=== PATIENT | female | born 1945 | race Caucasian/White ===

== ENCOUNTER → 2019-12-12 11:25 | Outpatient (CLI) | payer MEDICARE, SELFPAY ==
--- NOTE | ~2019-12-12 | DEXA_ITS ---
Bone Density Report Name: Jennifer Fajardo Age: 74 Sex: Female Ethnicity: White Date of : 1945 Indication: postmenopausal; screening for osteoporosis; asthma or emphysema; hysterectomy; Referring Provider: LINDSEY CARRION Study: Bone densitometry was performed. Exam Date: December 12, 2019 Accession number: [id number] Bone Density: Region BMD T-score Z-score Classification AP Spine (L1-L4) 0.643 -3.7 -1.4 Osteoporosis Femoral Neck (Left) 0.512 -3.0 -1.1 Osteoporosis Total Hip (Left) 0.628 -2.6 -0.9 Osteoporosis Femoral Neck (Right) 0.518 -3.0 -1.0 Osteoporosis Total Hip (Right) 0.675 -2.2 -0.5 Osteopenia Total Hip Mean 0.652 -2.4 -0.7 Osteopenia World Health Organization criteria for BMD impression classify patients as: Normal (T-score at or above -1.0), Osteopenia (T-score between -1.0 and -2.5), or Osteoporosis (T-score at or below -2.5). 10-year Fracture Risk: FRAX not reported because: Some T-score for Spine Total or Hip Total or Femoral Neck at or below -2.5 Clinical Information Provided by Patient: Has used the following medications: Vitamin D, Calcium Has the following medical conditions: Asthma or Emphysema, Hysterectomy Patient maximum height was 63 Menopause Age: 38 No regular weight bearing exercise Does not regularly consume dairy products Drinks caffeinated beverages Onset of menses at age 15 Number of children 3 Impression: The patient has osteoporosis, based on the Total Spine T-score. Discussion: INCREASED RISK OF FRACTURE. BONE DENSITY IS UNDESIRABLY LOW AT ONE OR MORE SKELETAL SITES, CONSISTENT WITH POSTMENOPAUSAL OSTEOPOROSIS. This patient's lowest T-score meets the World Health Organization's (WHO) criteria for osteoporosis at one or more sites (T-score -2.5 or below). In untreated patients, the risk of osteoporotic fracture increases approximately two-fold for each 1.0 SD decrease in T-score. Low bone density is not the only risk factor for fracture; also consider factors such as patient's age, frailty or poor health, risk of falling, risk of injury, previous osteoporotic fracture, family history of osteoporosis, cigarette smoking, low body weight, etc. Not everyone with low bone mineral density has osteoporosis; osteomalacia and other metabolic bone disorders should also be considered. Patients who have osteoporosis should be evaluated for specific diseases and conditions (secondary causes) that may cause or contribute to bone loss. The [place] [employer] (AACE) and National Osteoporosis Foundation (NOF) recommend pharmacologic intervention for all postmenopausal women whose T-score is in this range. The patient should follow a healthful lifestyle (good nutrition with adequate calcium and vitamin D, and appropriate weight-bearing exercise). Follow
== END ==
PROVIDERS: PCP Family Medicine; Visit Provider Family Medicine
DX: Z78.0 Asymptomatic menopausal state (principal); M85.89 Other specified disorders of bone density and structure, multiple sites; M81.0 Age-related osteoporosis without current pathological fracture
CPT/HCPCS: 77080

== ENCOUNTER 2020-03-04 06:14 | Outpatient (CLI) | payer MEDICARE, SELFPAY ==
[2020-03-04 16:38] LABS: SARS-CoV-2 RNA PCR Negative
== END 2020-03-04 06:15 | disposition home or self-care (01) ==
LOC: ANHCOVIDDT 06:15
PROVIDERS: PCP Family Medicine; Visit Provider Internal Medicine Gastroenterology
DX: Z01.818 Encounter for other preprocedural examination (principal); Z11.59 Encounter for screening for other viral diseases
CPT/HCPCS: 87635; C9803; U0003

== ENCOUNTER 2020-03-06 00:26 | Day surgery (SDC) | payer MEDICARE, SELFPAY ==
[2020-02-28 12:02] VITALS: BMI 22.8
[2020-03-02 14:13] VITALS: BMI 22.2
[2020-03-06 08:40] VITALS: BP 170/91; PULSE 94; RESP 16; TEMP 36.5; O2SAT 100
[2020-03-06] MEDS: LACTATED RINGERS 1,000 ML 150 ML IV CONT (09:04)
--- NOTE | 2020-03-06 09:12 | WPDANESEPPF ---
Anes - Initial Pre Proc Eval Procedure: Operation Date: 03/06/20 10:00 Proposed Procedures p Screening Colonoscopy - Orville Lynch MD Date/Time: 03/06/20 09:12 Surgeon: Orville Lynch MD Pre Op Diagnosis: neoplasm screening Patient Data Age: 74 Gender: F Height: 5 ft 3 in Weight: 54.7 kg Last Vital Signs Temp 36.5 C 03/06/20 08:40 Pulse 94 03/06/20 08:40 Resp 16 03/06/20 08:40 BP 170/91 H 03/06/20 08:40 Pulse Ox 100 03/06/20 08:40 Allergies Allergy/AdvReac Type Severity Reaction Status Date / Time No Known Allergies Allergy Unknown Verified 03/06/20 08:46 Home Medications Medication Instructions Recorded Confirmed Type amlodipine 2.5 mg tablet 2.5 mg PO DAILY #60 tablet 11/13/19 03/06/20 Rx albuterol sulfate 90 mcg/actuation 1 inhalation INHALATION Q4H PRN 11/29/19 03/06/20 Rx aerosol inhaler #18 gm montelukast 10 mg tablet 10 mg PO DAILY #90 tablet 11/29/19 03/06/20 Rx alendronate 70 mg tablet 70 mg PO WEEKLY #12 tablet 12/17/19 03/06/20 Rx Patient hx anesthesia problems: none Family hx anesthesia problems: none PMFSH Past Medical History Medical History Hypertension Positive colorectal cancer screening using Cologuard test Surgical History Surgical History H/O total hysterectomy Family History Family History Father Hypertension Family history of elevated blood lipids Sibling Hypertension Mother Family history of elevated blood lipids Social History Social History Smoking status: Never smoker Second hand tobacco smoke exposure: No Alcohol intake: never Anes - Eval Final PreProcedure Day of Procedure 03/06/20 09:12 Patient weight: normal Heart: regular rate and rhythm Lungs: clear to auscultation Airway: Mallampati scale class 1 Neurological: other (alert) Last oral intake: >/= 8 hours ASA classification: II Emergent: no Anesthesia type and monitoring: general GIVS and standard monitoring Informed Consent: The patient's anesthetic plan and its attendant risks and benefits were discussed with the patient/family/POA. Questions were solicited and answers provided to the satisfaction of the patient/family/POA.
--- NOTE | 2020-03-06 09:26 | P.HP_ITS ---
History of Present Illness History of Present Illness Consent: Risks, benefits, and alternatives have been discussed and questions answered. Patient agrees to proceed with procedure. Chief complaint: neoplasm screening Narrative: Jennifer Fajardo is a 74 year old female Undergoing screening colonoscopy. [facility] Past Medical History Medical History Hypertension Positive colorectal cancer screening using Cologuard test Surgical History Surgical History H/O total hysterectomy Family History Family History Father Hypertension Family history of elevated blood lipids Sibling Hypertension Mother Family history of elevated blood lipids Social History Social History Smoking status: Never smoker Second hand tobacco smoke exposure: No Alcohol intake: never Meds Home Medications and Allergies Home Medications Medication Instructions Recorded Confirmed Type amlodipine 2.5 mg tablet 2.5 mg PO DAILY #60 tablet 11/13/19 03/06/20 Rx albuterol sulfate 90 mcg/actuation 1 inhalation INHALATION Q4H PRN 11/29/19 03/06/20 Rx aerosol inhaler #18 gm montelukast 10 mg tablet 10 mg PO DAILY #90 tablet 11/29/19 03/06/20 Rx alendronate 70 mg tablet 70 mg PO WEEKLY #12 tablet 12/17/19 03/06/20 Rx Allergies Allergy/AdvReac Type Severity Reaction Status Date / Time No Known Allergies Allergy Unknown Verified 03/06/20 08:46 Vital Signs Vital Signs - 24 hr 03/06/20 08:40 Temperature 36.5 C Pulse Rate 94 Respiratory Rate 16 Blood Pressure 170/91 H Pulse Oximetry 100 Exam Resp: Auscultation: clear to auscultation bilaterally Cardio: Rate: regular rate Rhythm: regular rhythm GI: GI Palp: Yes Soft to palpation and No Tenderness to palpation present (GI) Assessment and Plan Assessment and plan (1) Colon cancer screening: Code(s): Z12.11 - Encounter for screening for malignant neoplasm of colon Status: Acute Assessment and Plan: Colonoscopy with possible biopsy or polypectomy or cautery or injection of calvillo bstances.
[2020-03-06 10:22] VITALS: BP 116/68; PULSE 87; RESP 28; O2SAT 96
[2020-03-06 10:32] VITALS: BP 122/76; PULSE 83; RESP 15; O2SAT 98
[2020-03-06 10:42] VITALS: BP 150/95; PULSE 90; RESP 23; O2SAT 100
== END 2020-03-06 11:03 | disposition home or self-care (01) ==
PROVIDERS: PCP Family Medicine; Visit Provider Internal Medicine Gastroenterology
PROC: 0DJD8ZZ Inspection of Lower Intestinal Tract, Via Natural or Artificial Opening Endoscopic (ICD-10-PCS; CPT 45378; principal; 2020-03-06 10:00)
DX: Z12.11 Encounter for screening for malignant neoplasm of colon (principal); R19.5 Other fecal abnormalities; K57.30 Diverticulosis of large intestine without perforation or abscess without bleeding; I10 Essential (primary) hypertension
CPT/HCPCS: G0121; J2704; J7120

== ENCOUNTER → 2020-06-05 10:05 | Outpatient (CLI) | payer MEDICARE, SELFPAY ==
--- NOTE | ~2020-06-05 | XR_ITS ---
EXAMINATION: XR chest 2V DATE: 06/05/2020 10:21 INDICATION: Cough. TECHNIQUE: Frontal and lateral views of the chest were obtained. COMPARISON: None. FINDINGS: There is a 2 cm nodule in right upper lobe. No pleural effusion or pneumothorax. The heart size is normal. There are old healed right rib fractures. IMPRESSION: 1. 2 cm nodule in right upper lobe suspicious for primary bronchogenic carcinoma versus infection/sca rring. Noncontrast chest CT is recommended. I discussed this result with Dr. Velarde. Reviewed, dictated and finalized at location B. IMPRESSION: 1. 2 cm nodule in right upper lobe suspicious for primary bronchogenic carcinom a versus infection/scarring. Noncontrast chest CT is recommended. I discussed t his result with Dr. Velarde.
== END ==
PROVIDERS: PCP Family Medicine; Visit Provider Family Medicine
DX: R05 Cough (principal); Z20.828 Contact with and (suspected) exposure to other viral communicable diseases; R91.1 Solitary pulmonary nodule
CPT/HCPCS: 71046

== ENCOUNTER → 2020-06-16 15:05 | Outpatient (CLI) | payer MEDICARE, SELFPAY ==
--- NOTE | ~2020-06-16 | XR_ITS ---
EXAMINATION: XR chest 2V 06/16/2020 15:46 INDICATION: Solitary pulmonary nodule PROCEDURE: 2 view chest COMPARISON: 06/05/2020 FINDINGS: Ill-defined nodular density right upper lobe reidentified. No acute focal pneumonia, edema or effusion. The cardiomediastinal silhouette is within normal limits. There are no pleural effusion s. There is no pneumothorax suspected. IMPRESSION: 1: Ill-defined nodular density right upper lobe reidentified. Follow-up CT chest recommended to excl ude mass. Reviewed, dictated and finalized at location A. IMPRESSION: 1: Ill-defined nodular density right upper lobe reidentified. Follow-up CT [facility]ie st recommended to exclude mass.
== END ==
PROVIDERS: PCP Family Medicine; Visit Provider Physician Assistant
DX: R91.1 Solitary pulmonary nodule (principal)
CPT/HCPCS: 71046

== ENCOUNTER → 2020-06-30 10:27 | Outpatient (CLI) | payer MEDICARE, SELFPAY ==
--- NOTE | ~2020-06-30 | CT_ITS ---
EXAMINATION: CT chest w con DATE: 06/30/2020 11:11 INDICATION: Solitary pulmonary nodule TECHNIQUE: Transaxial computed tomographic images of the chest were obtained after the administration of 75 cc of Omnipaque 350 intravenous contrast. The dose-length product (DLP) was 133.62 mGy-cm. Ite rative reconstruction was used. COMPARISON: Chest radiographs dated 06/16/2020 and 06/05/2020 FINDINGS: There is mild scarring in the lung apices, right greater than left. No suspicious mass or l sherlyn nodule is identified. Mild emphysema is noted. There is dependent atelectasis of the lower lobes. No pleural effusion or pneumothorax is identified. There is a small sliding hiatal hernia. No pathol ogically enlarged thoracic lymph nodes are identified. The heart size is normal. Calcified coronary a rtery atherosclerosis is noted. There is ectasia of the ascending thoracic aorta which measures 4 cm at the level of the main pulmonary artery. IMPRESSION: 1. No suspicious pulmonary mass or lung nodule identified. Reviewed, dictated and finalized at location B.
[2020-06-30 11:01] LABS: Estimated Glomerular Filt Rate > 60
== END ==
PROVIDERS: PCP Family Medicine; Visit Provider Physician Assistant
DX: R91.1 Solitary pulmonary nodule (principal)
CPT/HCPCS: 71260; Q9967

== ENCOUNTER → 2022-07-04 15:33 | Outpatient (CLI) | payer MEDICARE, SELFPAY ==
--- NOTE | ~2022-07-04 | XR_ITS ---
EXAMINATION: XR chest 2V DATE: 07/04/2022 16:01 INDICATION: Pleurodynia. TECHNIQUE: Frontal and lateral views of the chest were obtained. COMPARISON: Chest 2 views 06/16/2020, chest CT 06/30/2020 FINDINGS: There is mild scarring at the lung apices. No pleural effusion or pneumothorax. The heart s ize is normal. IMPRESSION: 1. Stable mild scarring at the lung apices. Reviewed, dictated and finalized at location A.
== END ==
PROVIDERS: PCP Physician Assistant Medical; Visit Provider Physician Assistant Medical
DX: R07.81 Pleurodynia (principal)
CPT/HCPCS: 71046

== ENCOUNTER → 2022-07-18 12:52 | Outpatient (CLI) | payer MEDICARE, SELFPAY ==
--- NOTE | ~2022-07-18 | XR_ITS ---
XR knee LT min 4V 07/18/2022 13:22 INDICATION: Left knee pain PROCEDURE: 4 views left knee COMPARISON: No prior studies for comparison. FINDINGS: Fracture, dislocation or subluxation is not identified. No significant joint effusion. Mode rate prepatellar soft tissue swelling. No foreign bodies are identified. IMPRESSION: 1: Moderate prepatellar soft tissue swelling. Consider bursitis versus posttraumatic change. Reviewed, dictated and finalized at location B. IMPRESSION: 1: Moderate prepatellar soft tissue swelling. Consider bursitis versus posttrau matic change.
== END ==
PROVIDERS: PCP Family Medicine; Visit Provider Physician Assistant
DX: S89.90XA Unspecified injury of unspecified lower leg, initial encounter (principal); X58.XXXA Exposure to other specified factors, initial encounter; M79.89 Other specified soft tissue disorders
CPT/HCPCS: 73564

== ENCOUNTER → 2023-05-17 10:52 | Outpatient (CLI) | payer MEDICARE, SELFPAY ==
--- NOTE | ~2023-05-17 | DEXA_ITS ---
Bone Density Report Name: CHARLA YOUSSEF Age: 78 Sex: Female Ethnicity: White Date of : 1945 Indication: postmenopausal osteoporosis; height loss; asthma or emphysema; hysterectomy; Referring Provider: ROSIBEL VAZQUEZ Study: Bone densitometry was performed. Exam Date: May 17, 2023 Accession number: [id number] Bone Density: Region BMD T-score Z-score Classification AP Spine (L1-L4) 0.689 -3.3 -0.8 Osteoporosis Femoral Neck (Left) 0.549 -2.7 -0.6 Osteoporosis Total Hip (Left) 0.597 -2.8 -1.0 Osteoporosis Femoral Neck (Right) 0.566 -2.5 -0.4 Osteoporosis Total Hip (Right) 0.691 -2.1 -0.2 Osteopenia Total Hip Mean 0.644 -2.5 -0.6 Osteopenia World Health Organization criteria for BMD impression classify patients as: Normal (T-score at or above -1.0), Osteopenia (T-score between -1.0 and -2.5), or Osteoporosis (T-score at or below -2.5). 10-year Fracture Risk: FRAX not reported because: Some T-score for Spine Total or Hip Total or Femoral Neck at or below -2.5 Previous Exams: Region Exam Age BMD T-score BMD Change BMD Change Date g/cm2 vs Baseline vs Previous AP Spine(L1-L4) 05/17/2023 78 0.689 -3.3 0.046* 0.046* 12/12/2019 74 0.643 -3.7 Total Hip(Left) 05/17/2023 78 0.597 -2.8 -0.031* -0.031* 12/12/2019 74 0.628 -2.6 Total Hip(Right) 05/17/2023 78 0.691 -2.1 0.016 0.016 12/12/2019 74 0.675 -2.2 *Denotes significance at 95% confidence level, LSC for AP Spine = 0.022 g/cm2, LSC for Total Hip = 0.027 g/cm2 Clinical Information Provided by Patient: Has used the following medications: Fosamax (i.e. alendronate) Has the following medical conditions: Asthma or Emphysema, Hysterectomy Patient maximum height was 64 Menopause Age: 38 No regular weight bearing exercise Does not regularly consume dairy products Drinks caffeinated beverages Onset of menses at age 15 Number of children 3 Impression: The patient has osteoporosis, based on the Total Spine T-score. The BMD for the Total Hip(Left) decreased, changing by -0.031 since the last DXA exam. Discussion: INCREASED RISK OF FRACTURE. BONE DENSITY IS UNDESIRABLY LOW AT ONE OR MORE SKELETAL SITES, CONSISTENT WITH POSTMENOPAUSAL OSTEOPOROSIS. This patient's lowest T-score meets the World Health Organization's (WHO) criteria for osteoporosis at one or more sites (T-score -2.5 or below). In untreated patients, the risk of osteoporot
== END ==
PROVIDERS: PCP Physician Assistant; Visit Provider Physician Assistant
DX: Z78.0 Asymptomatic menopausal state (principal); M81.0 Age-related osteoporosis without current pathological fracture; M85.852 Other specified disorders of bone density and structure, left thigh
CPT/HCPCS: 77080

== ENCOUNTER 2024-01-26 12:53 | Emergency (ER) | payer MEDICARE, SELFPAY ==
[2024-01-26 13:03] VITALS: BP 158/86; PULSE 104; RESP 14; TEMP 36.4; O2SAT 97
[2024-01-26 13:05] VITALS: BP 158/86; PULSE 104; RESP 14; TEMP 36.4; O2SAT 97
--- NOTE | 2024-01-26 13:45 | ED.URI ---
HPI - URI/Sore Throat General Chief Complaint: Upper Respiratory Infection Stated Complaint: Headache, Chest Pressure, Congestion Time Seen by Provider: 01/26/24 13:26 Source: patient and RN notes reviewed Mode of arrival: ambulatory Limitations: no limitations History of Present Illness HPI Narrative: Patient presents today with a 10 day history of nasal congestion, rhinorrhea, cough with chest congestion, fatigue, sweats. She has been taking Coricidin HBP and using her inhaler nebulizer treatments with some relief. History of asthma. No known fever. She has been intermittently short of breath. is at home with pneumonia. Related Data Home Medications Medication Instructions Recorded Confirmed cinnamon bark 500 mg capsule 1,000 mg PO DAILY 02/11/22 01/26/24 (Cinnamon) coenzyme A62-kpnsnit E 100 mg-100 1 cap PO DAILY 02/11/22 01/26/24 unit capsule krill 350 mg-omega-3 90 mg-dha 24 1 cap PO DAILY 02/11/22 01/26/24 mg-epa 50 cv-unavtos-raflr capsule (MegaRed [place]-3 Krill Oil) turmeric 400 mg capsule 400 mg PO DAILY 07/26/22 01/26/24 niacin 50 mg tablet 50 mg PO DAILY 02/14/23 01/26/24 albuterol sulfate 90 mcg/actuation 2 inh inhalation PRN PRN Shortness 01/26/24 01/26/24 aerosol inhaler Of Breath Or Wheezing Allergies Allergy/AdvReac Type Severity Reaction Status Date / Time No Known Allergies Allergy Unknown Verified 01/26/24 12:57 Review of Systems Review of Systems: CONSTITUTIONAL: Denies body aches, fever, chills.+ sweats, fatigue EYES: Denies visual changes, redness, or discharge. ENT: Denies sore throat, or otalgia.+ rhinorrhea, congestion, chest congestion CARDIOVASCULAR: Denies chest pain, palpitations, or edema. RESPIRATORY: + cough, shortness of breath GASTROINTESTINAL: Denies abdominal pain, nausea, vomiting, or diarrhea. GENITOURINARY: Denies dysuria or hematuria. SKIN: Denies rash, itching, or wounds. MUSCULOSKELETAL: Denies back pain, joint pain, or myalgia. NEUROLOGIC: Denies headache, numbness, tingling, or weakness. PSYCH: Denies depression or anxiety. PMFSH Past Medical History Medical History Asthma Hypertension Low back pain Mixed hyperlipidemia Osteoporosis Pleuritic chest pain Positive colorectal cancer screening using Cologuard test Surgical History Surgical History H/O total hysterectomy Family History Family History Father Hypertension Family history of elevated blood lipids Sibling Hypertension Mother Family history of elevated blood lipids Social History Social History Smoking status: Never smoker Second hand tobacco smoke exposure: No Alcohol intake: never Substance use: never Substance use type: does not use Lack of Transportation: No Lack of Food: Never True Current Housing: I Have Housing Concerned About Future Housing: No Difficulty Paying Gas/Electric Bills: No Difficulty Paying for Meds: No Currently Unemployed: No Education: High School Diploma/GED Difficulty w/ Childcare or Family Care: No Gender identity (if verbalized by the patient): Female Comments At time of signature, I have reviewed and agree with nursing past medical, surgical, social and family history unless otherwise noted. Please see nursing chart for further information. There is no relevant family history pertinent to the presenting complaint Exam Narrative: GENERAL: Well-appearing, well-nourished, and in no acute distress. HEAD: Normocephalic, atraumatic. EYES: EOMI. No redness or drainage. Conjunctivae normal. ENT: Mucous membranes pink and moist. Nares congestive. No rhinorrhea. TMs normal bilaterally. Throat normal. Uvula midline. NECK: Normal AROM. Supple. No lymphadenopathy. C
== END 2024-01-26 13:53 | disposition home or self-care (01) ==
PROVIDERS: Emergency Provider Nurse Practitioner; PCP Family Medicine
DX: J01.90 Acute sinusitis, unspecified (principal); J45.901 Unspecified asthma with (acute) exacerbation; J45.909 Unspecified asthma, uncomplicated; I10 Essential (primary) hypertension; E78.2 Mixed hyperlipidemia; M81.0 Age-related osteoporosis without current pathological fracture; Z90.710 Acquired absence of both cervix and uterus
CPT/HCPCS: 99213; G0463

== ENCOUNTER 2025-09-30 09:40 | Outpatient (CLI) | payer MEDICARE, SELFPAY ==
--- NOTE | ~2025-09-30 | DEXA_ITS ---
Bone Density Report Name: CHARLA YOUSSEF Age: 80 Sex: Female Ethnicity: White Date of : 1945 Indication: postmenopausal osteoporosis; monitoring treatment; height loss; asthma or emphysema; hysterectomy; Referring Provider: NASREEN PINK Study: Bone densitometry was performed. Exam Date: September 30, 2025 Accession number: [id number] Bone Density: Region BMD T-score Z-score Classification AP Spine(L1-L4) 0.670 -3.4 -0.8 Osteoporosis Femoral Neck (Left) 0.494 -3.2 -1.0 Osteoporosis Total Hip (Left) 0.619 -2.7 -0.7 Osteoporosis Femoral Neck (Right) 0.552 -2.7 -0.4 Osteoporosis Total Hip (Right) 0.669 -2.2 -0.3 Osteopenia Total Hip Mean 0.644 -2.5 -0.5 Osteopenia World Health Organization criteria for BMD impression classify patients as: Normal (T-score at or above -1.0), Osteopenia (T-score between -1.0 and -2.5), or Osteoporosis (T-score at or below -2.5). 10-year Fracture Risk: FRAX not reported because: Some T-score for Spine Total or Hip Total or Femoral Neck at or below -2.5 Treated for osteoporosis Previous Exams: -- Region Exam Age BMD T-score BMD Change BMD Change Date g/cm2 vs Baseline vs Previous -- AP Spine (L1-L4) 09/30/2025 80 0.670 -3.4 4.2%* -2.8% 05/17/2023 78 0.689 -3.3 7.2%* 7.2%* 12/12/2019 74 0.643 -3.7 Total Hip(Left) 09/30/2025 80 0.619 -2.7 -1.5% 3.6% 05/17/2023 78 0.597 -2.8 -4.9%* -4.9%* 12/12/2019 74 0.628 -2.6 Total Hip(Right) 09/30/2025 80 0.669 -2.2 -0.8% -3.1% 05/17/2023 78 0.691 -2.1 2.4% 2.4% 12/12/2019 74 0.675 -2.2 -- *Denotes significance at 95% confidence level, LSC for AP Spine = 0.022 g/cm2, LSC for Total Hip = 0.027 g/cm2 Clinical Information Provided by Patient: Is being treated for osteoporosis Has used the following medications: Fosamax (i.e. alendronate), HRT (i.e. estrogen/hormone therapy), Vitamin D, Calcium Has the following medical conditions: Asthma or Emphysema, Hysterectomy Patient maximum height was 63 Menopause Age: 38 No regular weight bearing exercise Drinks caffeinated beverages Onset of menses at age 15 Number of children 3 Impression: The patient has osteoporosis, based on the Total Spine T-score. No significant bone loss was observed. Discussion: PATIENT UNDER TREATMENT WITH NO SIGNIFICANT BMD LOSS SINCE LAST EXAM. In an untreated patient, BMD typically declines with age. A lack of decline or gain is usually a sign that treatment is efficacious and fracture risk is reduced. It is important to ask patients whether they are taking their medications and to encourage continued and appropriate compliance with their osteoporosis therapies to reduce fracture risk. It is also important to review their risk factors and encourage appropriate calcium and vitamin D intakes, exercise, fall prevention and other lifestyle measures. Follow-Up: Consider a repeat BMD and Vertebral Fracture Assessment (VFA) exam in 2 years or sooner if medically necessary, to reassess this patient's status. Reported by: DARION on 09/30/2025 10:15:00 AM. Reviewed, dictated and finalized at location A.
== END 2025-09-30 09:41 | disposition home or self-care (01) ==
LOC: MICIMG 09:41
PROVIDERS: PCP Student in an Organized Health Care Education/Training Program; Visit Provider Student in an Organized Health Care Education/Training Program
DX: M81.0 Age-related osteoporosis without current pathological fracture (principal); M85.851 Other specified disorders of bone density and structure, right thigh
CPT/HCPCS: 77080